=== PATIENT | male | born 1975 | race Caucasian/White ===

== ENCOUNTER 2018-12-18 13:22 | Emergency (ER) | payer MEDICAID, OTHER ==
[2018-12-18] MEDS: CEFAZOLIN 1 GM INJ IM (14:41)
[2018-12-18] MEDS: DIPHTH/TET/ACEL PERTUSS (ADULT) 0.5 ML VIAL IM* (14:45)
[2018-12-18] MEDS: BUPIVACAINE 0.75% (MPF) 10 ML INJ INJ (14:56)
== END 2018-12-18 17:50 | disposition home or self-care (01) ==
LOC: FTE 13:22
DX: S61.213A Laceration without foreign body of left middle finger without damage to nail, initial encounter (principal); S62.603A Fracture of unspecified phalanx of left middle finger, initial encounter for closed fracture; W31.1XXA Contact with metalworking machines, initial encounter; Y92.9 Unspecified place or not applicable; Z23 Encounter for immunization
CPT/HCPCS: 12001; 73140; 90471; 90715; 96372; 99284-25